=== PATIENT | male | born 2000 | race Two or more races ===

== ENCOUNTER 2020-05-15 16:33 | Emergency (ER) | payer OTHER ==
[2020-05-15 16:44] VITALS: BP 140/82; PULSE 89; TEMP 98.1; BMI 38.1
== END 2020-05-15 18:24 | disposition home or self-care (01) ==
LOC: JERFT 16:33
DX: S61.209A Unspecified open wound of unspecified finger without damage to nail, initial encounter (principal)
CPT/HCPCS: 99282-25